=== PATIENT | male | born 1935 | race Asian ===

== ENCOUNTER 2018-08-21 10:36 | Emergency (ER) | payer MEDICARE, OTHER ==
[~2018-08-21] VITALS: Ht 172.7 cm; Wt 65.8 kg
--- NOTE | 2018-08-21 10:36 | NUR ---
DR Farris at the bedside for MSE.
[2018-08-21] MEDS ORDERED: CRAN450C PO (11:00)
[2018-08-21] MEDS ORDERED: MEMA10TA PO (11:00)
[2018-08-21] MEDS ORDERED: LINA290C PO (11:00)
[2018-08-21] MEDS ORDERED: DIGO125T PO (11:00)
[2018-08-21] MEDS ORDERED: CALC-494 PO (11:00)
[2018-08-21] MEDS ORDERED: ACET-2154 PO (11:00)
[2018-08-21] MEDS ORDERED: INSU3INS6 SQ ×2 (11:00)
[2018-08-21] MEDS ORDERED: ASPI81TA31 PO (11:00)
[2018-08-21] MEDS ORDERED: DOCU100C36 PO (11:00)
[2018-08-21] MEDS ORDERED: CARV3.122 PO (11:00)
[2018-08-21] MEDS ORDERED: DEXT15DR6 EACHEYE (11:00)
[2018-08-21] MEDS ORDERED: METF-440 PO (11:00)
[2018-08-21] MEDS ORDERED: EMPA10TA PO (11:00)
[2018-08-21] MEDS ORDERED: LEVO88TA5 PO (11:00)
[2018-08-21] MEDS ORDERED: DONE10TA11 PO (11:00)
[2018-08-21] MEDS ORDERED: TAMS-3 PO (11:00)
[2018-08-21] MEDS ORDERED: MAGN400T6 PO (11:00)
[2018-08-21] MEDS ORDERED: CHOL4PAC PO (11:00)
[2018-08-21] MEDS ORDERED: MULT-213 PO (11:00)
[2018-08-21] MEDS ORDERED: CHOL200074 PO (11:02)
[2018-08-21] MEDS ORDERED: OMEG1CAP55 PO (11:02)
[2018-08-21] MEDS ORDERED: TRAV5DRO OP (11:02)
[2018-08-21] MEDS ORDERED: LINA5TAB PO (11:02)
[2018-08-21] MEDS ORDERED: PANT20TA2 PO (11:02)
[2018-08-21] MEDS ORDERED: NITR0.4T48 SL (11:02)
--- NOTE | 2018-08-21 11:20 | NUR ---
Patient is resting comfortably in bed with eyes closed, NAD noted.
--- NOTE | 2018-08-21 11:35 | NUR ---
Called [facility] for S ambulance tx, ETA 30 min.
--- NOTE | 2018-08-21 12:32 | NUR ---
Report given to industrial services worker, from [facility]. Pt Left ER in stable condition, discharge paperwork given to EMT's. All belongings sent w/ pt.
[2018-08-21 12:34] VITALS: BP 94/62
== END 2018-08-21 12:35 | disposition home or self-care (01) ==
LOC: ER 10:39
DX: M25.551 Pain in right hip (principal); Z79.4 Long term (current) use of insulin; Z79.82 Long term (current) use of aspirin; Z79.899 Other long term (current) drug therapy; W18.30XA Fall on same level, unspecified, initial encounter; Y93.89 Activity, other specified; Y92.89 Other specified places as the place of occurrence of the external cause; Y99.8 Other external cause status
CPT/HCPCS: 72192; A4663

== ENCOUNTER 2019-10-20 14:42 | Inpatient (IN) | payer MEDICARE, OTHER ==
[~2019-10-20] VITALS: Ht 182.9 cm; Wt 66.5 kg
--- NOTE | 2019-10-20 14:49 | NUR ---
ERMD at bedside for MSE
[2019-10-20 15:12] LABS: BASOPHILS # (AUTO) 0.1 K/uL (0.0-8.0); BASOPHILS % (AUTO) 0.9 % (0.0-2.0); EOSINOPHILS # (AUTO) 0.4 K/uL (0.0-0.7); HEMATOCRIT 31.1 % (36.7-47.1); HEMOGLOBIN 10.2 g/dL (12.5-16.3); LYMPHOCYTES # (AUTO) 1.6 K/uL (20.0-40.0); LYMPHOCYTES % (AUTO) 16.6 % (20.5-51.5); MEAN CORPUSCULAR HEMOGLOBIN 27.4 uug (23.8-33.4); MEAN CORPUSCULAR HGB CONC 33 g/dL (32.5-36.3); MEAN CORPUSCULAR VOLUME 83.6 fL (73.0-96.2); MONOCYTES # (AUTO) 0.6 K/uL (2.0-10.0); MONOCYTES % (AUTO) 6.3 % (0.0-11.0); NEUTROPHILS # (AUTO) 7.1 K/uL (1.8-8.9); NEUTROPHILS % (AUTO) 72.2 % (38.5-71.5); PLATELET COUNT (AUTO) 330 K/uL (152-348); RED BLOOD CELL COUNT(AUTO) 3.72 MIL/uL (4.06-5.63); WHITE BLOOD COUNT (AUTO) 9.8 K/uL (3.6-10.2)
[2019-10-20 15:21] LABS: CREATININE 1.2 mg/dL (0.6-1.3); POTASSIUM 3.7 mmol/L (3.5-5.1)
--- NOTE | 2019-10-20 16:15 | NUR ---
Awaiting call back from [facility] nephrology aboriginal education worker coordinator
--- NOTE | 2019-10-20 16:20 | NUR ---
Gabbi returned call
--- NOTE | 2019-10-20 16:46 | NUR ---
In patient floor is not able to take patient at this time.
[2019-10-20] MEDS ORDERED: IV NORMAL SALINE 1000 ML BAG IV ONE (17:00)
--- NOTE | 2019-10-20 17:33 | NUR ---
Report given to RADHA Kong
--- NOTE | 2019-10-20 17:41 | NUR ---
Patient transported to [facility] in stable condition.
--- NOTE | 2019-10-20 17:50 | NUR ---
ADMITTED FROM [facility] VIA ER FOR PEG PLACEMENT SECONDARY TO FAILURE TO THRIVE. ALERT, CONFUSED X3. NO SIGNS OF DISTRESS. WILL ADMIT UNDER MEDSURG STATUS. WILL NOTIFY MD FOR ADMISSION ORDERS.
[2019-10-20 18:00] VITALS: BP 119/66
[2019-10-20] MEDS ORDERED: IV NORMAL SALINE 500 ML IV ONE (20:00)
[2019-10-20 20:09] VITALS: BP 84/48
--- NOTE | 2019-10-20 20:15 | NUR ---
Spoke to on-call Dr. Valadez, says he will do admitting orders and reconcile medication. Keep patient NPO for now. Patient also noted with low BP, doctor ordered 500ml NS bolus x1. Patient noted resting in bed, easily to arouse, A/Ox1. No s/s of pain or SOB. safety measures initiated. Bed is low and locked, call light within reach. Will continue to monitor.
--- NOTE | 2019-10-20 21:56 | NUR ---
Rechecked blood pressures and is now 96/54. Spoke to Dr. Valadez about admitting orders, says he is working it right now. Will continue to monitor.
[2019-10-20] MEDS ORDERED: BISACODYL 10 MG SUPP.RECT RC PRN (22:30)
[2019-10-20] MEDS ORDERED: FLEET ENEMA 133 ML BOTTLE RC PRN (22:30)
[2019-10-20] MEDS ORDERED: NITROGLYCERIN 0.4 MG/TAB BOTTLE SL PRN (22:30)
[2019-10-20] MEDS ORDERED: Z GUARD REMEDY PASTE 57 GM TUBE TOP PRN (22:45)
[2019-10-20] MEDS ORDERED: HYDROCODONE/APAP 5-325MG TABLET PO PRN (22:45)
[2019-10-20] MEDS ORDERED: ZOLPIDEM 5 MG TABLET PO PRN (22:45)
[2019-10-20] MEDS ORDERED: ONDANSETRON 4 MG/2 ML VIAL IV PRN (22:45)
[2019-10-20] MEDS ORDERED: MAGNESIUM HYDROXIDE 30 ML LIQUID UDC PO PRN (22:45)
[2019-10-20] MEDS ORDERED: DEXTROSE 50% 50 ML DISP.SYRIN IV PRN (22:45)
[2019-10-20] MEDS ORDERED: ALBUTEROL SULFATE 2.5 MG/3 ML NEBU NEB PRN (23:00)
[2019-10-21] MEDS: BLOOD SUGAR DIAGNOSTIC 1 EACH STRIP VI SCH ×4 (00:22→18:21)
[2019-10-21] MEDS: INSULIN REGULAR, HUMAN 300 UNIT/3 ML VIAL SQ PRN ×3 (00:25→18:23)
--- NOTE | 2019-10-21 05:41 | NUR ---
patient slept intermittently. No episodes of agitation or aggression noted. Turned and repositioned patient. Heplocks on the left forearm are intact and patent. Safety measures given. Will endorse to next shift.
[2019-10-21 06:14] LABS: BASOPHILS % (AUTO) 0.2 % (0.0-2.0); EOSINOPHILS # (AUTO) 0.2 K/uL (0.0-0.7); EOSINOPHILS % (AUTO) 2.8 % (0.0-7.0); HEMATOCRIT 28.5 % (36.7-47.1); HEMOGLOBIN 9.4 g/dL (12.5-16.3); LYMPHOCYTES # (AUTO) 1.5 K/uL (20.0-40.0); LYMPHOCYTES % (AUTO) 17.7 % (20.5-51.5); MEAN CORPUSCULAR HEMOGLOBIN 27.3 uug (23.8-33.4); MEAN CORPUSCULAR HGB CONC 33 g/dL (32.5-36.3); MEAN CORPUSCULAR VOLUME 83.3 fL (73.0-96.2); MONOCYTES # (AUTO) 0.6 K/uL (2.0-10.0); MONOCYTES % (AUTO) 6.9 % (0.0-11.0); NEUTROPHILS # (AUTO) 6.1 K/uL (1.8-8.9); NEUTROPHILS % (AUTO) 72.4 % (38.5-71.5); PLATELET COUNT (AUTO) 330 K/uL (152-348); RED BLOOD CELL COUNT(AUTO) 3.43 MIL/uL (4.06-5.63); WHITE BLOOD COUNT (AUTO) 8.4 K/uL (3.6-10.2)
[2019-10-21 06:20] VITALS: BP 96/50
[2019-10-21] MEDS: PANTOPRAZOLE SODIUM 40 MG TABLET.DR PO SCH (06:20)
[2019-10-21] MEDS: LEVOTHYROXINE SODIUM 88 MCG TABLET PO SCH (06:20)
[2019-10-21 06:26] LABS: CREATININE 1.3 mg/dL (0.6-1.3); MAGNESIUM 1.5 mg/dL (1.8-2.4); PHOSPHOROUS 2.2 mg/dL (2.5-4.9); POTASSIUM 3.3 mmol/L (3.5-5.1)
[2019-10-21] MEDS ORDERED: ZOLPIDEM 5 MG TABLET PO PRN (07:15)
[2019-10-21] MEDS: CARVEDILOL 6.25 MG TABLET PO SCH ×2 (08:56→18:00)
[2019-10-21] MEDS: MAGNESIUM OXIDE 400 MG TABLET PO SCH ×2 (08:57→17:55)
[2019-10-21] MEDS: SPIRONOLACTONE 25 MG TABLET PO SCH (08:57)
[2019-10-21] MEDS: LISINOPRIL 10 MG TABLET PO SCH ×2 (08:57→21:00)
[2019-10-21] MEDS: MEMANTINE HCL 10 MG TABLET PO SCH (08:57)
[2019-10-21] MEDS: CALCIUM CARBONATE 500 MG TABLET PO SCH ×2 (08:58→17:51)
[2019-10-21] MEDS ORDERED: ASPIRIN 81 MG TAB.CHEW PO SCH (09:00)
[2019-10-21 11:05] VITALS: BP 112/61
[2019-10-21] MEDS: MAGNESIUM SULFATE/D5W 100 ML IV SCH ×3 (11:27→13:39)
[2019-10-21] MEDS: POTASSIUM PHOSPHATE MM 7.5 MMOL in IV DEXTROSE 5% 100 ML IV SCH ×2 (11:58→15:07)
[2019-10-21] MEDS ORDERED: SILVER NITRATE APPLICATOR STICK EACH TP PRN (12:30)
[2019-10-21] MEDS ORDERED: OSELTAMIVIR PHOSPHATE 75 MG CAPSULE PO SCH (14:00)
[2019-10-21 15:10] VITALS: BP 100/24
--- NOTE | 2019-10-21 18:49 | NUR ---
PATIENT ALERT WITH EPISODES OF CONFUSION. NO SOB, NO S/S OF PAIN AT THIS TIME. PATIENT WILL BE NPO AFTER MIDNIGHT AND GTUBE INSERTION IS SCHEDULE FOR TOMORROW, CONSENT SIGNED.
--- NOTE | 2019-10-21 20:00 | NUR ---
Patient received into care, laying in bed sleeping, resting comfortably. Patient is alert/oriented x1 and has no signs/symptoms of acute distress or discomfort noted/observed by nurse. Safety, fall, and aspiration precautions are in place. Call light and personal items are within reach. Will continue to monitor and assess.
[2019-10-21 20:52] VITALS: BP 114/67
[2019-10-21] MEDS: TAMSULOSIN HCL 0.4 MG CAP.SR.24H PO SCH ×2 (21:00→21:19)
[2019-10-21] MEDS: MELATONIN 3 MG TABLET PO SCH ×2 (21:00→21:19)
[2019-10-21] MEDS: DONEPEZIL 10 MG TABLET PO SCH ×2 (21:00→21:19)
[2019-10-21] MEDS: QUETIAPINE FUMARATE 25 MG TABLET PO SCH ×2 (21:00→21:19)
[2019-10-21] MEDS: INSULIN GLARGINE,HUM 300 UNITS/3 ML CARTRIDGE SQ SCH (21:19)
--- NOTE | 2019-10-21 21:20 | NUR ---
PATIENT REFUSED ALL HS MEDICATIONS. NURSE EXPLAINED RISKS/BENEFITS THREE TIMES BUT PATIENT STILL REFUSED. Addendum: 10/22/19 at 0518 by RASHID COULTER RN HELD HS PRESCRIBED PRINIVIL DUE TO DECREASED BP 95/56
[2019-10-22] MEDS: BLOOD SUGAR DIAGNOSTIC 1 EACH STRIP VI SCH ×4 (00:12→17:18)
[2019-10-22] MEDS: IV D5/ 0.9% NACL 1,000 ML IV PRN ×2 (00:19→19:59)
--- NOTE | 2019-10-22 01:30 | NUR ---
LEFT AC IV CATHETER LEAKING. DOCUMENTED LEFT FOREARM (APPEARS TO BE ON LEFT WRIST) 24G IV CATH DOES NOT FLUSH AND IS REDDENED. INSERTED NEW IV CATH ON LEFT FOREARM 22G AND STARTED D5 NS @ 75mL/HR, ORDERED. OLD IV CATHETERS SUCCESSFULLY REMOVED. WILL CONTINUE TO MONITOR AND ASSESS.
[2019-10-22] MEDS: INSULIN REGULAR, HUMAN 300 UNIT/3 ML VIAL SQ PRN ×3 (05:31→17:20)
[2019-10-22 05:56] LABS: BASOPHILS % (AUTO) 0.3 % (0.0-2.0); EOSINOPHILS # (AUTO) 0.3 K/uL (0.0-0.7); EOSINOPHILS % (AUTO) 3.5 % (0.0-7.0); HEMATOCRIT 27.3 % (36.7-47.1); LYMPHOCYTES # (AUTO) 2.1 K/uL (20.0-40.0); LYMPHOCYTES % (AUTO) 21.3 % (20.5-51.5); MEAN CORPUSCULAR HEMOGLOBIN 27.3 uug (23.8-33.4); MEAN CORPUSCULAR HGB CONC 33 g/dL (32.5-36.3); MEAN CORPUSCULAR VOLUME 83.2 fL (73.0-96.2); MONOCYTES # (AUTO) 0.7 K/uL (2.0-10.0); NEUTROPHILS # (AUTO) 6.5 K/uL (1.8-8.9); NEUTROPHILS % (AUTO) 67.9 % (38.5-71.5); PLATELET COUNT (AUTO) 312 K/uL (152-348); RED BLOOD CELL COUNT(AUTO) 3.28 MIL/uL (4.06-5.63); WHITE BLOOD COUNT (AUTO) 9.7 K/uL (3.6-10.2)
[2019-10-22 05:58] LABS: CREATININE 1.1 mg/dL (0.6-1.3); MAGNESIUM 1.7 mg/dL (1.8-2.4); PHOSPHOROUS 3.3 mg/dL (2.5-4.9); POTASSIUM 3.7 mmol/L (3.5-5.1)
--- NOTE | 2019-10-22 06:00 | NUR ---
Patient slept comfortably throughout night with no signs/symptoms of acute distress or discomfort noted/observed by nurse. Patient was not compliant with his HS oral medications but did accept prescribed Lantus and insulins. All nursing needs were met promptly and patient is warm, dry, and comfortable. Patient has been NPO since 12mn in anticipation for scheduled gastrostomy tube insertion this morning. Safety, aspiration, and fall precaution measures remain in place. Personal items and call light remain within reach.
[2019-10-22] MEDS: PANTOPRAZOLE SODIUM 40 MG TABLET.DR PO SCH (06:06)
[2019-10-22] MEDS: LEVOTHYROXINE SODIUM 88 MCG TABLET PO SCH (06:06)
--- NOTE | 2019-10-22 06:49 | NUR ---
WOUND CARE CONSULT WOUND CARE RECEIVED CONSULT FOR SACRAL WOUND. WOUND CARE WILL DEFER CONSULT AND ALL TREATMENT PLANS TO SURGICAL TEAM INCLUDING DPM DR GOTTI WHO ARE ALL FOLLOWING THIS PATIENT. PATIENT WITH SOLITARIO AT 10, ALL PRESSURE ULCER PREVENTION MEASURES ARE NOTED TO BE IN PLACE. WILL SEE PRN.
[2019-10-22 06:51] VITALS: BP 105/65
--- NOTE | 2019-10-22 07:30 | NUR ---
Received Pt. in bed A/Ox1, responsive to verbal and tactile stimuli. Pt. NPO since midnight per NSG report. Schedule for G-tube insertion with Dr. Cortez. On PETRA for pressure redistribution and wound mgt. Family at bedside, telephone consent obtained by previous shift. Safety measure in place. Call light and all frequently used items within pt. reach. Will continue to monitor accordingly.
[2019-10-22] MEDS ORDERED: FENTANYL CITRATE 100 MCG/2 ML AMPUL ONE (07:39)
[2019-10-22] MEDS: CARVEDILOL 6.25 MG TABLET PO SCH ×2 (08:00→17:16)
--- NOTE | 2019-10-22 08:03 | NUR ---
Pt. left unit at 0800 for scheduled G-tube placement. Left in stable condition. Family at bedside and aware.
[2019-10-22] MEDS: MEMANTINE HCL 10 MG TABLET PO SCH (08:09)
[2019-10-22] MEDS: MAGNESIUM OXIDE 400 MG TABLET PO SCH ×2 (08:09→17:16)
[2019-10-22] MEDS: SPIRONOLACTONE 25 MG TABLET PO SCH (08:09)
[2019-10-22] MEDS: LISINOPRIL 10 MG TABLET PO SCH ×2 (08:09→20:29)
[2019-10-22] MEDS: CALCIUM CARBONATE 500 MG TABLET PO SCH ×2 (08:09→17:16)
[2019-10-22] MEDS ORDERED: PROPOFOL 200 MG/20 ML BOTTLE IV ONE (09:31)
[2019-10-22] MEDS ORDERED: IRR STERIL WATER FOR IRR 1000 ML BOTTLE IR ONE (09:31)
[2019-10-22] MEDS ORDERED: CEFAZOLIN 1 G VIAL IM ONE (09:31)
[2019-10-22] MEDS ORDERED: IV NORMAL SALINE 1000 ML BAG IV ONE (09:31)
[2019-10-22] MEDS ORDERED: LIDOCAINE-MPF 2% 5 ML VIAL IJ ONE (09:31)
--- NOTE | 2019-10-22 10:51 | NUR ---
Pt. returned to unit @ 1045 s/p PEG placement. Re-started IV fluid. Per Dr. Cortez may use PEG in 4 hours for water + meds. Feeding to start in AM. RD consult placed for feeding. Peg site dressing C/D/I. Addendum: 10/22/19 at 1535 by JARED MAGANA RN Pt. seen by BOARDING HOUSE MANAGER, sacral wound debridement performed. Pt. tolerated procedure well.
[2019-10-22 11:10] VITALS: BP 105/68
[2019-10-22] MEDS: MAGNESIUM SULFATE/D5W 100 ML IV SCH ×2 (12:17→13:25)
[2019-10-22] MEDS: THERAHONEY GEL 1.5 OZ TUBE TOP SCH (12:17)
[2019-10-22 15:10] VITALS: BP 104/62
--- NOTE | 2019-10-22 18:33 | NUR ---
EOS: All due medications given as ordered. Pt. NPO, all meds via GT. New IV started on RH 22G. Seen by RD with recommendation for Glucerna 1.2 to start in AM @ 20 ml per hour and may increase every 6 hours by 10 ml with goal of 70 ml/hr + water flushing on 140 ml every 6 hours. Kept pt. clean and dry. Safety measures in place. Call light and all frequently used items within pt. reach. Will endorse to oncoming shift accordingly.
[2019-10-22 20:14] VITALS: BP 98/59
[2019-10-22] MEDS: TAMSULOSIN HCL 0.4 MG CAP.SR.24H PO SCH (20:28)
[2019-10-22] MEDS: DONEPEZIL 10 MG TABLET PO SCH (20:28)
[2019-10-22] MEDS: QUETIAPINE FUMARATE 25 MG TABLET PO SCH (20:29)
[2019-10-22] MEDS: MELATONIN 3 MG TABLET PO SCH (20:29)
[2019-10-22] MEDS: INSULIN GLARGINE,HUM 300 UNITS/3 ML CARTRIDGE SQ SCH (21:08)
[2019-10-23] MEDS: BLOOD SUGAR DIAGNOSTIC 1 EACH STRIP VI SCH ×4 (00:12→17:47)
[2019-10-23] MEDS: INSULIN REGULAR, HUMAN 300 UNIT/3 ML VIAL SQ PRN ×2 (00:13→14:35)
[2019-10-23 06:19] VITALS: BP 96/55
[2019-10-23] MEDS: GLUCERNA 1.2 1000ML LIQUID GT PRN (06:23)
[2019-10-23] MEDS: LEVOTHYROXINE SODIUM 88 MCG TABLET PO SCH (06:33)
[2019-10-23 07:25] LABS: CREATININE 1.2 mg/dL (0.6-1.3); MAGNESIUM 2.1 mg/dL (1.8-2.4); POTASSIUM 3.1 mmol/L (3.5-5.1)
[2019-10-23] MEDS: CARVEDILOL 6.25 MG TABLET PO SCH ×2 (08:57→17:51)
[2019-10-23] MEDS: PANTOPRAZOLE ORAL SUSPENSION 40 MG SUSPDR.PKT GT SCH (08:57)
[2019-10-23] MEDS: SPIRONOLACTONE 25 MG TABLET PO SCH (08:57)
[2019-10-23] MEDS: MAGNESIUM OXIDE 400 MG TABLET PO SCH ×2 (08:57→16:31)
[2019-10-23] MEDS: MEMANTINE HCL 10 MG TABLET PO SCH (08:57)
[2019-10-23] MEDS: CALCIUM CARBONATE 500 MG TABLET PO SCH ×2 (08:57→16:31)
[2019-10-23] MEDS: LISINOPRIL 10 MG TABLET PO SCH ×2 (08:58→20:50)
[2019-10-23] MEDS: THERAHONEY GEL 1.5 OZ TUBE TOP SCH (08:58)
[2019-10-23] MEDS ORDERED: POTASSIUM CHLORIDE 10 MEQ TAB.PRT.SR PO ONE (10:00)
[2019-10-23 11:10] VITALS: BP 91/51
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
[2019-10-23] MEDS: ARGININE/GLUTAMINE/CALCIUM BMB 1 EACH POWD.PACK GT SCH ×2 (14:31→16:31)
[2019-10-23] MEDS: IV D5/ 0.9% NACL 1,000 ML IV PRN (14:48)
[2019-10-23 15:30] VITALS: BP 102/59
--- NOTE | 2019-10-23 15:30 | NUR ---
Pt tolerating TF well (Glucerna 1.2). TF now infusing at 40 ml/h. No residual noted. 140 ml free water administered at this time (every 6 hours) per MD orders. No distress noted or reported. Pt denied any pain or discomfort. Pt noted to have pulled out PIV partially, and leaking, and infiltrated. Notified RADHA Stewart for continuity of care. SBAR report given to RADHA Leung, for continuity of care. Pt turned every 2 hours. Pt safety maintained during shift.
--- NOTE | 2019-10-23 15:50 | NUR ---
Dressing change to left foot/heel rendered per wound care orders. Pt safety maintained during shift.
--- NOTE | 2019-10-23 16:00 | NUR ---
Received report from PREET GARCIA.
--- NOTE | 2019-10-23 18:29 | NUR ---
Patient is awake and verbally responsive. No signs of distress noted. No SOB. No signs of Pain or discomfort. GTube feeding tolerated well. Abdomen soft and non distended. Kept clean and comfortable. will endorse to Oncoming Nurse.
--- NOTE | 2019-10-23 20:00 | NUR ---
RECEIVED PATIENT ASLEEP IN BED. EASILY AROUSABLE. ALERT TO SELF, BUT FOLLOWS DIRECTIONS WELL. GT FEEDING AT 40cc/hr. PATIENT TOLERATING WELL. HOB ELEVATED. ABDOMINAL BINDER IN PLACE. VSS. IVF INFUSING WELL TO RIGHT FA. ON AIR MATTRESS. WHEN ASKED IF PAIN IS PRESENT, PATIENT DENIES. NO S/S OF ANY PAIN OR DISCOMFORT. BED ALARM ON. CALL LIGHT IN REACH. ALL NEEDS ATTENDED. WILL CONTINUE TO MONITOR AND ASSESS.
[2019-10-23] MEDS: DONEPEZIL 10 MG TABLET PO SCH (20:49)
[2019-10-23] MEDS: MELATONIN 3 MG TABLET PO SCH (20:49)
[2019-10-23] MEDS: QUETIAPINE FUMARATE 25 MG TABLET PO SCH (20:49)
[2019-10-23] MEDS: ACETAMINOPHEN 325 MG TABLET PO PRN (20:49)
[2019-10-23] MEDS: TAMSULOSIN HCL 0.4 MG CAP.SR.24H PO SCH (20:49)
[2019-10-23] MEDS: INSULIN GLARGINE,HUM 300 UNITS/3 ML CARTRIDGE SQ SCH (20:50)
[2019-10-23 20:54] VITALS: BP 111/63
[2019-10-24] MEDS: BLOOD SUGAR DIAGNOSTIC 1 EACH STRIP VI SCH ×4 (00:04→17:43)
[2019-10-24] MEDS: INSULIN REGULAR, HUMAN 300 UNIT/3 ML VIAL SQ PRN ×4 (00:05→17:46)
[2019-10-24 05:46] VITALS: BP 94/53
--- NOTE | 2019-10-24 06:08 | NUR ---
PATIENT ASLEEP IN BED. EASILY AROUSABLE. GT FEEDING AT 50cc/hr. TOLERATING FEEDING WELL, ALMOST REACHED GOAL. NO RESIDUAL NOTED. VSS. IVF INFUSING WELL. DRESSING C/D/I. ALL NEEDS ATTENDED, WILL CONTINUE TO MONITOR AND ASSESS.
[2019-10-24] MEDS: LEVOTHYROXINE SODIUM 88 MCG TABLET PO SCH (06:15)
[2019-10-24] MEDS: CARVEDILOL 6.25 MG TABLET PO SCH ×2 (07:45→17:56)
--- NOTE | 2019-10-24 07:45 | NUR ---
Received patient in Bed, awake and responsive. No signs of distress noted. No SOB. No complain of Pain or discomfort. GTube intact and patent, Gtube feeding tolerated well. Abdomen soft and non distended. kept comfortable. Will continue to monitor.
[2019-10-24] MEDS: LISINOPRIL 10 MG TABLET PO SCH ×2 (08:17→20:32)
[2019-10-24] MEDS: CALCIUM CARBONATE 500 MG TABLET PO SCH ×2 (08:18→16:46)
[2019-10-24] MEDS: MEMANTINE HCL 10 MG TABLET PO SCH (08:18)
[2019-10-24] MEDS: ASPIRIN 81 MG TAB.CHEW GT SCH (08:18)
[2019-10-24] MEDS: PANTOPRAZOLE ORAL SUSPENSION 40 MG SUSPDR.PKT GT SCH (08:18)
[2019-10-24] MEDS: SPIRONOLACTONE 25 MG TABLET PO SCH (08:18)
[2019-10-24] MEDS: MAGNESIUM OXIDE 400 MG TABLET PO SCH ×2 (08:18→16:46)
[2019-10-24] MEDS: ARGININE/GLUTAMINE/CALCIUM BMB 1 EACH POWD.PACK GT SCH ×2 (08:18→16:47)
[2019-10-24] MEDS: THERAHONEY GEL 1.5 OZ TUBE TOP SCH (09:20)
[2019-10-24] MEDS: IV D5/ 0.9% NACL 1,000 ML IV PRN (10:48)
[2019-10-24 11:08] VITALS: BP 113/61
[2019-10-24 15:16] VITALS: BP 128/62
--- NOTE | 2019-10-24 17:25 | NUR ---
Tolerating TF thus, will increase to goal rate today. Glucose fair control. Weight stable. Will continue to monitor. Addendum: 10/24/19 at 1747 by LORI GALINDO, VIANE[address] RD Amended: Links added.
--- NOTE | 2019-10-24 18:20 | NUR ---
Patient in bed, awake and verbally responsive. No signs of distress noted. No SOB. No complain of Pain or discomfort. Afebrile. Gtube intact and patent, Abdomen soft and non distended. On Glucerna 70cc/hr x 22 hours. Gtube feeding tolerated well, No nausea/vomiting. Kept clean and comfortable. Will endorse to Oncoming Nurse.
--- NOTE | 2019-10-24 19:30 | NUR ---
RECEIVED PT AWAKE, ALERT AND ORIENTEDX1. PT IN NO ACUTE DISTRESS. IV INTACT. G-TUBE INTACT. SAFETYAND COMFORT PROVIDED. WILL CONTINUE TO MONITOR.
[2019-10-24] MEDS: DONEPEZIL 10 MG TABLET PO SCH (20:29)
[2019-10-24] MEDS: MELATONIN 3 MG TABLET PO SCH (20:29)
[2019-10-24] MEDS: QUETIAPINE FUMARATE 25 MG TABLET PO SCH (20:30)
[2019-10-24] MEDS: TAMSULOSIN HCL 0.4 MG CAP.SR.24H PO SCH (20:30)
[2019-10-24] MEDS: ACETAMINOPHEN 325 MG TABLET PO PRN (20:31)
[2019-10-24] MEDS: INSULIN GLARGINE,HUM 300 UNITS/3 ML CARTRIDGE SQ SCH (20:37)
[2019-10-24 20:47] VITALS: BP 96/56
[2019-10-24 21:28] VITALS: BP 110/63
--- NOTE | 2019-10-24 21:52 | NUR ---
GIVEN TYLENOL FOR 100.6 TEMP. COOLING MEASURES DONE. RECENT TEMP IS 98.6. PT IN NO ACUTE DISTRESS. WILL CONTINUE TO MONITOR.
[2019-10-24] MEDS: GLUCERNA 1.2 1000ML LIQUID GT PRN (22:21)
[2019-10-25] MEDS: BLOOD SUGAR DIAGNOSTIC 1 EACH STRIP VI SCH ×4 (00:15→18:50)
[2019-10-25] MEDS: INSULIN REGULAR, HUMAN 300 UNIT/3 ML VIAL SQ PRN ×4 (00:17→18:54)
--- NOTE | 2019-10-25 05:30 | NUR ---
PT COMBATIVE WHEN CHANGING DIAPERS TO THE PT. SAFETY PROVIDED. WILL CONTINUE TO MONITOR.
[2019-10-25] MEDS: LEVOTHYROXINE SODIUM 88 MCG TABLET PO SCH (06:05)
[2019-10-25 06:10] LABS: BASOPHILS % (AUTO) 0.2 % (0.0-2.0); EOSINOPHILS # (AUTO) 0.2 K/uL (0.0-0.7); EOSINOPHILS % (AUTO) 1.6 % (0.0-7.0); HEMATOCRIT 27.3 % (36.7-47.1); LYMPHOCYTES # (AUTO) 1.9 K/uL (20.0-40.0); LYMPHOCYTES % (AUTO) 14.8 % (20.5-51.5); MEAN CORPUSCULAR HEMOGLOBIN 27.2 uug (23.8-33.4); MEAN CORPUSCULAR HGB CONC 33 g/dL (32.5-36.3); MONOCYTES # (AUTO) 0.8 K/uL (2.0-10.0); MONOCYTES % (AUTO) 6.4 % (0.0-11.0); NEUTROPHILS # (AUTO) 9.8 K/uL (1.8-8.9); PLATELET COUNT (AUTO) 356 K/uL (152-348); RED BLOOD CELL COUNT(AUTO) 3.29 MIL/uL (4.06-5.63); WHITE BLOOD COUNT (AUTO) 12.8 K/uL (3.6-10.2)
--- NOTE | 2019-10-25 06:14 | NUR ---
PT SLEPT COMFORTABLY. PT IN NO ACUTE DISTRESS. IV INTACT. GTUBE INTACT.PRESCRIBED MEDICATION GIVEN AND PT TOLERATED IT WELL. WOUND DRESSING CHANGED. PT TURNED AND REPOSITIONED. ALL NEEDS ARE MET.SAFETY AND COMFORT PROVIDED. WILL ENDORSE TO INCOMING NURSE FOR CONTINUITY OF CARE.
[2019-10-25 06:31] LABS: CREATININE 1.2 mg/dL (0.6-1.3); PHOSPHOROUS 2.3 mg/dL (2.5-4.9); POTASSIUM 4.2 mmol/L (3.5-5.1)
[2019-10-25 06:47] VITALS: BP 102/65
--- NOTE | 2019-10-25 07:00 | NUR ---
PATIENT AOX2,PT IN NO ACUTE DISTRESS. IV INTACT. GTUBE INTACT NO RESIDUAL. WOUND DRESSING CHANGED. PT WILL BE TURNED AND REPOSITIONED Q 2 H. WILL CONTINUITY OF CARE AND SAFETY .
[2019-10-25] MEDS: CARVEDILOL 6.25 MG TABLET PO SCH ×2 (08:00→18:00)
[2019-10-25] MEDS: SPIRONOLACTONE 25 MG TABLET PO SCH (08:33)
[2019-10-25] MEDS: ASPIRIN 81 MG TAB.CHEW GT SCH (08:33)
[2019-10-25] MEDS: CALCIUM CARBONATE 500 MG TABLET PO SCH ×2 (08:34→18:51)
[2019-10-25] MEDS: LISINOPRIL 10 MG TABLET PO SCH (08:34)
[2019-10-25] MEDS: MAGNESIUM OXIDE 400 MG TABLET PO SCH ×2 (08:34→18:51)
[2019-10-25] MEDS: MEMANTINE HCL 10 MG TABLET PO SCH (08:34)
[2019-10-25] MEDS: PANTOPRAZOLE ORAL SUSPENSION 40 MG SUSPDR.PKT GT SCH (08:34)
[2019-10-25] MEDS: THERAHONEY GEL 1.5 OZ TUBE TOP SCH (08:40)
[2019-10-25] MEDS: ARGININE/GLUTAMINE/CALCIUM BMB 1 EACH POWD.PACK GT SCH ×2 (08:40→18:52)
[2019-10-25 11:19] VITALS: BP 98/59
[2019-10-25 15:02] VITALS: BP 121/23
[2019-10-25] MEDS ORDERED: NEUTRA PHOS PACKET GT ONE (15:30)
[2019-10-25 16:39] LABS: *BILIRUBIN,URIN NEGATIVE (NEGATIVE); *COLOR,URINE YELLOW (YELLOW); *KETONES,URINE NEGATIVE (NEGATIVE); *UROBILINOGEN,URINE 0.2 E.U./dl (NORMAL); LEUKOCYTE ESTERASE ,URINE 1+ (NEGATIVE); NITRITE, URINE NEGATIVE (NEGATIVE); UGLUCOSE NEGATIVE (NEGATIVE)
[2019-10-25 17:50] LABS: *BLOOD, URINE TRACE (NEGATIVE); *CLARITY,URINE SLIGHTLY HAZY (CLEAR)
[2019-10-25 17:53] LABS: MUCUS,URINE MODERATE /LPF (0-FEW)
--- NOTE | 2019-10-25 19:01 | NUR ---
PATIENT AOX2,PT IN NO ACUTE DISTRESS. IV INTACT. GTUBE INTACT NO RESIDUAL. WOUND DRESSING CHANGED. PT TURNED AND REPOSITIONED Q 2 H. SAFETY MAINTAINED .
--- NOTE | 2019-10-25 19:15 | NUR ---
Patient is awake, alert and verbally responsive. Oriented to name, responds to simple questions but unable to continue a full conversation. Coughing noted. Adventitious breath sounds heard on expiration, more on the upper lobes. But no signs of active distress. GT feeding on going as ordered, pt tolerating well. Kept patient on semi sher's position. Aspiration precautions maintained. Family is at bedside, and asked for updates on patient. Informed them of AM nurse report and reassured that we will take care of patient. All questions answered. Will continue to monitor.
[2019-10-25 20:00] VITALS: BP 114/59
[2019-10-25] MEDS: TAMSULOSIN HCL 0.4 MG CAP.SR.24H PO SCH (21:23)
[2019-10-25] MEDS: DONEPEZIL 10 MG TABLET PO SCH (21:23)
[2019-10-25] MEDS: QUETIAPINE FUMARATE 25 MG TABLET PO SCH (21:23)
[2019-10-25] MEDS: MELATONIN 3 MG TABLET PO SCH (21:23)
[2019-10-25] MEDS: INSULIN GLARGINE,HUM 300 UNITS/3 ML CARTRIDGE SQ SCH (21:30)
[2019-10-26] MEDS: BLOOD SUGAR DIAGNOSTIC 1 EACH STRIP VI SCH ×3 (01:43→12:52)
[2019-10-26] MEDS: INSULIN REGULAR, HUMAN 300 UNIT/3 ML VIAL SQ PRN ×2 (01:45→12:53)
[2019-10-26 05:00] VITALS: BP 91/55
[2019-10-26] MEDS: LEVOTHYROXINE SODIUM 88 MCG TABLET PO SCH (06:03)
[2019-10-26 06:51] LABS: EOSINOPHILS # (AUTO) 0.3 K/uL (0.0-0.7); MEAN CORPUSCULAR HEMOGLOBIN 27.2 uug (23.8-33.4); MEAN CORPUSCULAR HGB CONC 33 g/dL (32.5-36.3); MONOCYTES # (AUTO) 0.9 K/uL (2.0-10.0)
[2019-10-26 07:01] LABS: BASOPHILS % (AUTO) 0.3 % (0.0-2.0); HEMATOCRIT 29.6 % (36.7-47.1); HEMOGLOBIN 9.7 g/dL (12.5-16.3); LYMPHOCYTES # (AUTO) 3.3 K/uL (20.0-40.0); LYMPHOCYTES % (AUTO) 19.6 % (20.5-51.5); MONOCYTES % (AUTO) 5.2 % (0.0-11.0); NEUTROPHILS # (AUTO) 12.2 K/uL (1.8-8.9); NEUTROPHILS % (AUTO) 72.9 % (38.5-71.5); PLATELET COUNT (AUTO) 411 K/uL (152-348); RED BLOOD CELL COUNT(AUTO) 3.56 MIL/uL (4.06-5.63)
[2019-10-26 07:03] LABS: WHITE BLOOD COUNT (AUTO) 16.7 K/uL (3.6-10.2)
[2019-10-26 07:18] LABS: MAGNESIUM 1.9 mg/dL (1.8-2.4); PHOSPHOROUS 2.4 mg/dL (2.5-4.9); POTASSIUM 4.5 mmol/L (3.5-5.1)
--- NOTE | 2019-10-26 07:30 | NUR ---
Awake, confused. On moderate high back rest. Room air, with intermittent coughing. Glucerna 1.2 at 70 ml/hr per G tube. Bed alarm on
[2019-10-26] MEDS: CARVEDILOL 6.25 MG TABLET PO SCH (08:00)
[2019-10-26] MEDS: ARGININE/GLUTAMINE/CALCIUM BMB 1 EACH POWD.PACK GT SCH (09:00)
[2019-10-26] MEDS: ASPIRIN 81 MG TAB.CHEW GT SCH (09:36)
[2019-10-26] MEDS: MEMANTINE HCL 10 MG TABLET PO SCH (09:36)
[2019-10-26] MEDS: MAGNESIUM OXIDE 400 MG TABLET PO SCH (09:36)
[2019-10-26] MEDS: SPIRONOLACTONE 25 MG TABLET PO SCH (09:36)
[2019-10-26] MEDS: PANTOPRAZOLE ORAL SUSPENSION 40 MG SUSPDR.PKT GT SCH (09:36)
[2019-10-26] MEDS: CALCIUM CARBONATE 500 MG TABLET PO SCH (09:36)
[2019-10-26] MEDS: THERAHONEY GEL 1.5 OZ TUBE TOP SCH (09:42)
[2019-10-26] MEDS ORDERED: CEFTRIAXONE 1 G in IV DEXTROSE 5% 50 ML IV SCH (10:00)
[2019-10-26 11:38] VITALS: BP 102/60
--- NOTE | 2019-10-26 14:00 | NUR ---
Wound care done to sacral, left heel, right hand. photos taken. With discharge order to SNF, facilitated with [facility]. Report given to Oneyda. Prepared for discharge
[2019-10-26 15:38] VITALS: BP 107/32
--- NOTE | 2019-10-26 16:00 | NUR ---
Discharged per gurney/ambulance in fair condition, not in distress, afebrile. Saline to LFA intact and patent. G tube intact.
== END 2019-10-26 16:00 | DRG 356 ==
LOC: ER 14:42 → MEDSURG3 16:55
PROVIDERS: ADMIT Internal Medicine; ATTEND Internal Medicine Nephrology
PROC: 0DH63UZ Insertion of Feeding Device into Stomach, Percutaneous Approach (ICD-10-PCS; principal; 2019-10-22)
PROC: 0JB70ZZ Excision of Back Subcutaneous Tissue and Fascia, Open Approach (ICD-10-PCS; 2019-10-22)
DX: R13.10 Dysphagia, unspecified (principal); L89.153 Pressure ulcer of sacral region, stage 3; G92 Toxic encephalopathy; L97.328 Non-pressure chronic ulcer of left ankle with other specified severity; R62.7 Adult failure to thrive; K21.9 Gastro-esophageal reflux disease without esophagitis; I48.0 Paroxysmal atrial fibrillation; I25.10 Atherosclerotic heart disease of native coronary artery without angina pectoris; E11.622 Type 2 diabetes mellitus with other skin ulcer; E11.42 Type 2 diabetes mellitus with diabetic polyneuropathy; E11.51 Type 2 diabetes mellitus with diabetic peripheral angiopathy without gangrene; R60.0 Localized edema; R82.81 Pyuria; D64.9 Anemia, unspecified; Z95.1 Presence of aortocoronary bypass graft; Z79.4 Long term (current) use of insulin; Z95.810 Presence of automatic (implantable) cardiac defibrillator; F03.90 Unspecified dementia, unspecified severity, without behavioral disturbance, psychotic disturbance, mood disturbance, and anxiety; S90.512A Abrasion, left ankle, initial encounter; X58.XXXA Exposure to other specified factors, initial encounter; Y92.099 Unspecified place in other non-institutional residence as the place of occurrence of the external cause; Z82.49 Family history of ischemic heart disease and other diseases of the circulatory system; I67.9 Cerebrovascular disease, unspecified; Z79.890 Hormone replacement therapy; Z79.899 Other long term (current) drug therapy
CPT/HCPCS: 36415; 71045; 73610; 83735; 84100; 85025; 85730; 87040; 87086; 93005; A4217; A4663; C1758; G0378; J0690; J0696; J1815; J3010; J3475; J3490; J7030; J7042; J7050; J7060

== ENCOUNTER 2019-11-26 11:00 | Inpatient (IN) | payer MEDICARE, OTHER ==
[2019-11-26] VITALS (27 sets, daily range): BP systolic 75–125; BP diastolic 44–83
[~2019-11-26] VITALS: Ht 182.9 cm; Wt 64.9 kg
--- NOTE | 2019-11-26 10:20 | NUR ---
RECHECK PATIENT BLOOD SUGAR 417. OBTAINED ORDER FOR 10 UNITS REGULAR INSULIN PER DR GUERRA. Addendum: 11/27/19 at 0113 by MAURIEC PRADO RN CORRECTION TIME OF EVENT IS 2219.
[2019-11-26] MEDS ORDERED: PIPERACILLIN SODIUM/TAZOBACTAM 3.375 G in IV DEXTROSE 5% 50 ML IV ONE (12:00)
[2019-11-26] MEDS ORDERED: IV NORMAL SALINE 1000 ML BAG IV ONE ×2 (12:00→15:00)
[2019-11-26] MEDS ORDERED: PIPERACILLIN/TAZOBACTAM/D5W 50 ML IV ONE (12:17)
[2019-11-26 12:18] LABS: BASOPHILS % (AUTO) 0.1 % (0.0-2.0); EOSINOPHILS # (AUTO) 0.1 K/uL (0.0-0.7); EOSINOPHILS % (AUTO) 0.3 % (0.0-7.0); HEMATOCRIT 25.4 % (36.7-47.1); LYMPHOCYTES # (AUTO) 1.2 K/uL (20.0-40.0); LYMPHOCYTES % (AUTO) 5.3 % (20.5-51.5); MEAN CORPUSCULAR HEMOGLOBIN 24.7 uug (23.8-33.4); MEAN CORPUSCULAR HGB CONC 31 g/dL (32.5-36.3); MONOCYTES # (AUTO) 0.7 K/uL (2.0-10.0); NEUTROPHILS # (AUTO) 20.4 K/uL (1.8-8.9); NEUTROPHILS % (AUTO) 91.3 % (38.5-71.5); PLATELET COUNT (AUTO) 442 K/uL (152-348); RED BLOOD CELL COUNT(AUTO) 3.22 MIL/uL (4.06-5.63); WHITE BLOOD COUNT (AUTO) 22.4 K/uL (3.6-10.2)
--- NOTE | 2019-11-26 12:20 | NUR ---
EKG done as ordered.
--- NOTE | 2019-11-26 12:28 | NUR ---
Relayed results of EKG to MD, with no new orders at this time. Pt monitored.
[2019-11-26 12:34] LABS: CARBON DIOXIDE 28 mmol/L (21-32); CHLORIDE 108 mmol/L (98-107); CREATININE 1.7 mg/dL (0.6-1.3); POTASSIUM 4.2 mmol/L (3.5-5.1); UREA NITROGEN, BLOOD 74 mg/dL (7-18)
[2019-11-26 12:36] LABS: GLUCOSE 344 mg/dL (74-106)
[2019-11-26 12:38] LABS: MAGNESIUM 2.5 mg/dL (1.8-2.4)
--- NOTE | 2019-11-26 12:45 | NUR ---
After kirsten-anal care done, rectal temperature was taken & rectal exam by MD, patient's heart rate is now elevated, MD is aware
[2019-11-26 12:48] LABS: THYROID STIMULATING HORMONE 3.4 mIU/mL (0.358-3.740)
[2019-11-26 12:51] LABS: ALANINE AMINOTRANSFERASE 29 U/L (16-63); ALKALINE PHOSPHATASE 311 U/L (50-136); ASPARTATE AMINOTRANSFERASE 20 U/L (15-37); BILIRUBIN,DIRECT 0.3 mg/dL (0.0-0.2); BILIRUBIN,TOTAL 0.7 mg/dL (0.2-1.0)
[2019-11-26] MEDS ORDERED: HEPARIN/D5W DRIP 500 ML IV PRN (13:15)
[2019-11-26] MEDS: VANCOMYCIN IV 1,250 MG in IV DEXTROSE 5% 250 ML IV ONE (13:19)
[2019-11-26 13:26] LABS: *BILIRUBIN,URIN NEGATIVE (NEGATIVE); *CLARITY,URINE CLEAR (CLEAR); *COLOR,URINE YELLOW (YELLOW); *KETONES,URINE NEGATIVE (NEGATIVE); LEUKOCYTE ESTERASE ,URINE 1+ (NEGATIVE); NITRITE, URINE NEGATIVE (NEGATIVE); UGLUCOSE TRACE (NEGATIVE)
[2019-11-26 13:28] LABS: *BLOOD, URINE TRACE (NEGATIVE)
[2019-11-26] MEDS ORDERED: HEPARIN/D5W DRIP 500 ML ONE (13:31)
[2019-11-26 13:36] LABS: BACTERIA,URINE MANY /HPF (NONE SEEN); SQUAMOUS EPITHELIAL CELL,UR FEW /HPF (NONE SEEN); WBC,URINE 80-100 /HPF (0-3)
[2019-11-26 13:37] LABS: MUCUS,URINE MODERATE /LPF (0-FEW); URINE AMORPHOUS PHOSPHATES MODERATE /HPF
--- NOTE | 2019-11-26 13:39 | NUR ---
Extremely difficult to get 2nd EKG 2/2 pt is agitated, screaming loudly, MD is aware.
--- NOTE | 2019-11-26 13:39 | NUR ---
Second EKG done, and relayed to .
--- NOTE | 2019-11-26 13:43 | NUR ---
IV Heparin & IV Vancomycin are not compatible (indeterminate), another PIV line needed, is aware. Endorsed to RADHA Chambers accordingly.
[2019-11-26] MEDS ORDERED: HEPARIN SODIUM,PORCINE 5,000 UNITS/ML VIAL ONE ×2 (13:54)
--- NOTE | 2019-11-26 14:00 | NUR ---
New IV line inserted on R wrist 22G, Heparin bolus of 5600 units given as ordered, and started patient on heparin drip started on 1300units/hr (26mL/hr). No signs of bleeding at this time. Monitored.
[2019-11-26] MEDS ORDERED: NOREPINEPHRINE BITARTRATE 8 MG in IV NORMAL SALINE 242 ML IV PRN (14:45)
[2019-11-26] MEDS ORDERED: LORAZEPAM 2 MG/1 ML VIAL IV ONE (14:45)
[2019-11-26] MEDS ORDERED: IV NS 1000 ML 1,000 ML IV ONE (14:45)
[2019-11-26] MEDS ORDERED: AMIODARONE HCL IV 450 MG in IV DEXTROSE 5% 250 ML IV PRN (14:45)
[2019-11-26] MEDS ORDERED: LORAZEPAM 2 MG/1 ML VIAL ONE (15:18)
--- NOTE | 2019-11-26 15:24 | NUR ---
still for CVC line insertion by Dr Davidson 2/ septic shock
--- NOTE | 2019-11-26 17:00 | NUR ---
Current Levophed drip@1mcg/kg/min thru right subclavian CVC line.
--- NOTE | 2019-11-26 17:02 | NUR ---
Patient transferred to CCU in critical condition.
[2019-11-26] MEDS ORDERED: BISACODYL 10 MG SUPP.RECT RC PRN (17:45)
--- NOTE | 2019-11-26 17:45 | NUR ---
PATIENT ADMITTED FROM ER. REPORT RECEIVED FROM OTF GARCIA. PATIENT CAME IN FOR SEPSIS OF WOUNDS. POST LINE PLACEMENT CXR DONE FOR CONFIRMATION OF LINE PLACED. ER TOTAL 3.2 L GIVEN PER SEPSIS PROTOCOL AND INFUSING NS @120ML/HR. FLU A AND B NEGATIVE. PATIENT MAXED ON LEVOPHED ON 1MCG/KG/MIN. ON HEPARIN DRIP 5600 UNITS BOLUS GIVEN AND STARTED WITH 1300UNITS/HR NEXT PTT DUE AT 2000. VANCO 1250MG IV GIVEN, ZOSYN 3.[address] LEONARD[address]
[2019-11-26] MEDS ORDERED: MORPHINE SULFATE 2 MG/1 ML DISP.SYRIN IV PRN (18:00)
[2019-11-26] MEDS ORDERED: ACETAMINOPHEN 325 MG TABLET GT PRN (18:00)
--- NOTE | 2019-11-26 18:00 | NUR ---
DOCTOR CHARLIE TAKING OVER AND WILL BE THE ADMITTING DOCTOR. VIEWED PATIENT'S XRAY FROM FACILITY CLEARED AND XRAY UPON ADMISSION SHOWED POSSIBLE PULMONARY EDEMA OR INFECTION. PATIENT DIAGNOSIS ADDED R/O COVID19. COVID SWAB DONE AND GIVEN TO LAB STAT LABS DRAWN AND ABG DONE PER RT. PATIENT PLACED ON ISOLATION. PATIENT IS A FEBRILE AT THIS TIME.
--- NOTE | 2019-11-26 18:22 | NUR ---
CLINICAL PHARMACY NOTE:VANCOMYCIN DOSING Request for vancomycin dosing on 84 y/o male 182.88cm 71.2kg for possible sepsis Temp. 99.8F WBC 22.4 BUN 74 Scr 1.7 also on Zosyn and Zithromax. Patient received vancomycin 1250Gm in ER. Continue vancomycin 1gm ivpb q24h estimated trough 18. Will order trough level prior to 4th dose. Will continue to monitor
[2019-11-26 18:27] LABS: ABG BASE EXCESS -10.6 mmol/L; ABG HCO3 13.1 mmol/L; ABG PCO2 22.2 mmHg (35.0-45.0); ABG PO2 102.3 mmHg (75.0-100.0); ABG SITE RIGHT RADIAL; ABG TOTAL HEMOGLOBIN 7.5 G/dL (13.5-18.0); COHb 0.9 % (0.5-1.5); MetHb 0.5 % (0.0-1.5); O2Hb 96.6 % (94.0-97.0); VENT MODE Nasal Cannula
[2019-11-26 18:31] LABS: BASOPHILS % (AUTO) 0.1 % (0.0-2.0); EOSINOPHILS # (AUTO) 0.1 K/uL (0.0-0.7); LYMPHOCYTES # (AUTO) 0.6 K/uL (20.0-40.0); LYMPHOCYTES % (AUTO) 1.7 % (20.5-51.5); NEUTROPHILS # (AUTO) 34.8 K/uL (1.8-8.9)
[2019-11-26 18:33] LABS: EOSINOPHILS % (AUTO) 0.4 % (0.0-7.0); MEAN CORPUSCULAR HEMOGLOBIN 25.2 uug (23.8-33.4); MEAN CORPUSCULAR HGB CONC 31 g/dL (32.5-36.3); MEAN CORPUSCULAR VOLUME 80.6 fL (73.0-96.2); MONOCYTES # (AUTO) 1.5 K/uL (2.0-10.0); MONOCYTES % (AUTO) 4.1 % (0.0-11.0); NEUTROPHILS % (AUTO) 93.7 % (38.5-71.5); PLATELET COUNT (AUTO) 394 K/uL (152-348); RED BLOOD CELL COUNT(AUTO) 2.72 MIL/uL (4.06-5.63)
[2019-11-26 18:39] LABS: WHITE BLOOD COUNT (AUTO) 37.1 K/uL (3.6-10.2)
[2019-11-26 18:40] LABS: HEMOGLOBIN 6.9 g/dL (12.5-16.3)
[2019-11-26 18:51] LABS: ALANINE AMINOTRANSFERASE 30 U/L (16-63); ALKALINE PHOSPHATASE 307 U/L (50-136); ASPARTATE AMINOTRANSFERASE 51 U/L (15-37); BILIRUBIN,TOTAL 0.9 mg/dL (0.2-1.0); CARBON DIOXIDE 18 mmol/L (21-32); CHLORIDE 109 mmol/L (98-107); CREATININE 1.8 mg/dL (0.6-1.3); FERRITIN 630 ng/mL (26-388); POTASSIUM 4.2 mmol/L (3.5-5.1); TOTAL PROTEIN, SERUM 6.1 g/dL (6.4-8.2); UREA NITROGEN, BLOOD 66 mg/dL (7-18)
[2019-11-26 18:52] LABS: GLUCOSE 453 mg/dL (74-106)
[2019-11-26 18:59] LABS: BAND % (MANUAL) 33 % (0-10); LYMPHOCYTES % (MANUAL) 1 % (20-40); MONOCYTES % (MANUAL) 5 % (2-10); NEUTROPHILS % (MANUAL) 61 % (42-75)
--- NOTE | 2019-11-26 19:00 | NUR ---
REPORTED ALL CRITICAL LAB RESULTS TO DOCTOR GUERRA. PLEASE REFER TO ORDER HISTORY FOR NEW ORDERS
[2019-11-26] MEDS ORDERED: BUMETANIDE 1 MG/4 ML VIAL IV ONE (19:15)
[2019-11-26] MEDS ORDERED: IV D5/ 0.9% NACL 1,000 ML IV PRN (19:15)
[2019-11-26] MEDS: NOREPINEPHRINE BITARTRATE 32 MG in IV NORMAL SALINE 218 ML IV PRN (19:40)
[2019-11-26] MEDS: PIPERACILLIN/TAZO 2.25 G in IV DEXTROSE 5% 50 ML IV SCH ×2 (19:40→23:51)
[2019-11-26] MEDS: HEPARIN/D5W DRIP 500 ML IV PRN (19:50)
[2019-11-26] MEDS: HYDROXYCHLOROQUINE SULFATE 200 MG TABLET GT SCH (19:50)
[2019-11-26] MEDS ORDERED: AZITHROMYCIN IV 500 MG in IV DEXTROSE 5% 250 ML IV SCH (20:00)
[2019-11-26] MEDS ORDERED: DEXTROSE 50% 50 ML DISP.SYRIN IV PRN (20:00)
[2019-11-26] MEDS ORDERED: FUROSEMIDE 20 MG/2 ML VIAL IV PRN (20:00)
[2019-11-26] MEDS: TAMSULOSIN HCL 0.4 MG CAP.SR.24H XX SCH (20:15)
[2019-11-26] MEDS: MELATONIN 3 MG TABLET GT SCH (20:15)
[2019-11-26] MEDS: BLOOD SUGAR DIAGNOSTIC 1 EACH STRIP VI SCH (20:32)
[2019-11-26 20:36] LABS: IRON, SERUM 6 ug/dL (50-175)
[2019-11-26] MEDS ORDERED: INSULIN GLARGINE,HUM 300 UNITS/3 ML CARTRIDGE SQ SCH (21:00)
[2019-11-26] MEDS: INSULIN REGULAR, HUMAN 300 UNIT/3 ML VIAL SQ PRN (21:13)
[2019-11-26] MEDS ORDERED: INSULIN REGULAR, HUMAN 300 UNIT/3 ML VIAL SQ ONE (22:15)
[2019-11-26] MEDS ORDERED: IV NS 1000 ML 1,000 ML IV SCH (22:15)
[2019-11-27] VITALS (94 sets, daily range): BP systolic 62–180; BP diastolic 21–153
--- NOTE | 2019-11-27 00:20 | NUR ---
PATIENT TAKEN FOR CT SCAN. PATIENT TOLERATED TRANSPORT. REMAINS STABLE AT THIS TIME.
[2019-11-27] MEDS: BLOOD SUGAR DIAGNOSTIC 1 EACH STRIP VI SCH ×5 (00:46→20:00)
[2019-11-27] MEDS: INSULIN REGULAR, HUMAN 300 UNIT/3 ML VIAL SQ PRN ×4 (00:51→17:10)
--- NOTE | 2019-11-27 01:38 | NUR ---
BLOOD BANK CALLED FROM LABORATORY AND ARE HAVING DIFFICULT TIME MATCHING BLOOD TYPE- WILL TAKING LONGER TO OBTAIN BLOOD AT THIS TIME. WILL CONTINUE TO WAIT FOR BLOOD.
[2019-11-27] MEDS: NOREPINEPHRINE BITARTRATE 32 MG in IV NORMAL SALINE 218 ML IV PRN ×3 (02:59→19:02)
[2019-11-27 04:17] LABS: BASOPHILS # (AUTO) 0.1 K/uL (0.0-8.0); HEMOGLOBIN 7.5 g/dL (12.5-16.3); MEAN CORPUSCULAR VOLUME 83.3 fL (73.0-96.2)
[2019-11-27 04:18] LABS: BASOPHILS % (AUTO) 0.1 % (0.0-2.0); EOSINOPHILS % (AUTO) 4.8 % (0.0-7.0); HEMATOCRIT 25.1 % (36.7-47.1); LYMPHOCYTES # (AUTO) 1.9 K/uL (20.0-40.0); LYMPHOCYTES % (AUTO) 4.7 % (20.5-51.5); MEAN CORPUSCULAR HEMOGLOBIN 24.8 uug (23.8-33.4); MEAN CORPUSCULAR HGB CONC 30 g/dL (32.5-36.3); MONOCYTES # (AUTO) 1.5 K/uL (2.0-10.0); MONOCYTES % (AUTO) 3.6 % (0.0-11.0); NEUTROPHILS % (AUTO) 86.8 % (38.5-71.5); PLATELET COUNT (AUTO) 448 K/uL (152-348); RED BLOOD CELL COUNT(AUTO) 3.02 MIL/uL (4.06-5.63)
[2019-11-27 04:22] LABS: ALANINE AMINOTRANSFERASE 127 U/L (16-63); ALKALINE PHOSPHATASE 263 U/L (50-136); ASPARTATE AMINOTRANSFERASE 234 U/L (15-37); BILIRUBIN,TOTAL 0.9 mg/dL (0.2-1.0); CARBON DIOXIDE 12 mmol/L (21-32); CHLORIDE 109 mmol/L (98-107); CHOLESTEROL < 50 mg/dL (<200); CREATININE 1.8 mg/dL (0.6-1.3); HDL CHOLESTEROL 10 mg/dL (40-60); MAGNESIUM 2.1 mg/dL (1.8-2.4); PHOSPHOROUS 5.3 mg/dL (2.5-4.9); TOTAL PROTEIN, SERUM 6.5 g/dL (6.4-8.2); TRIGLYCERIDES 100 MG/DL (30-150); UREA NITROGEN, BLOOD 68 mg/dL (7-18)
[2019-11-27 04:31] LABS: THYROID STIMULATING HORMONE 5.139 mIU/mL (0.358-3.740)
[2019-11-27 04:45] LABS: WHITE BLOOD COUNT (AUTO) 41.4 K/uL (3.6-10.2)
[2019-11-27 04:48] LABS: GLUCOSE 422 mg/dL (74-106)
--- NOTE | 2019-11-27 04:50 | NUR ---
endorsed to evelin rnaugust continue to stay with patient fro remainder of shift.
--- NOTE | 2019-11-27 05:00 | NUR ---
Critical labs reported to Dr. Harmeet carias, no new orders received besides monitoring of temperature to redraw blood cultures if spike noticed.
[2019-11-27 05:21] LABS: *OCCULT BLOOD STOOL NEGATIVE (NEGATIVE)
[2019-11-27] MEDS: PIPERACILLIN/TAZO 2.25 G in IV DEXTROSE 5% 50 ML IV SCH (05:29)
[2019-11-27 06:02] LABS: O2Hb 98.5 % (94.0-97.0); VT, ABG 500 mL
[2019-11-27 06:20] LABS: BAND % (MANUAL) 7 % (0-10); EOSINOPHILS % (MANUAL) 3 % (0-8); LYMPHOCYTES % (MANUAL) 11 % (20-40); MONOCYTES % (MANUAL) 4 % (2-10); NEUTROPHILS % (MANUAL) 75 % (42-75)
[2019-11-27] MEDS: LEVOTHYROXINE SODIUM 88 MCG TABLET GT SCH (06:25)
[2019-11-27 06:30] LABS: ABG HCO3 9.9 mmol/L; ABG PCO2 16.7 mmHg (35.0-45.0); ABG SITE LEFT BRACHIAL; ABG TOTAL HEMOGLOBIN 10.2 G/dL (13.5-18.0); COHb 0.3 % (0.5-1.5); VENT MODE Nasal Cannula
--- NOTE | 2019-11-27 06:57 | NUR ---
Contacted [facility] for critical abg results. No answer awaiting call back for critical labs.
--- NOTE | 2019-11-27 07:15 | NUR ---
Contacted [employer] for report of critical labs. No answer at this time will try in 15 minutes.
[2019-11-27] MEDS ORDERED: INSULIN GLARGINE,HUM 300 UNITS/3 ML CARTRIDGE SQ SCH (07:45)
[2019-11-27] MEDS: PHENYLEPHRINE IV 100 MG in IV NORMAL SALINE 240 ML IV PRN ×2 (08:37→22:34)
[2019-11-27] MEDS ORDERED: Medication Not On Formulary EA (Zinc Sulfate 1 TAB) GT SCH (09:00)
[2019-11-27] MEDS ORDERED: Medication Not On Formulary EA (Ascorbic Acid (Vitamin C) 500 MG) GT SCH (09:00)
[2019-11-27] MEDS: HYDROXYCHLOROQUINE SULFATE 200 MG TABLET GT SCH (09:02)
[2019-11-27] MEDS: ZINC SULFATE 220 MG CAPSULE GT SCH (09:02)
[2019-11-27] MEDS: ASCORBIC ACID 500 MG TABLET GT SCH (09:02)
[2019-11-27] MEDS: ASPIRIN 81 MG TAB.CHEW GT SCH (09:02)
[2019-11-27 09:03] LABS: MONOCYTES # (AUTO) 1.5 K/uL (2.0-10.0); PLATELET COUNT (AUTO) 423 K/uL (152-348)
[2019-11-27] MEDS: PANTOPRAZOLE ORAL SUSPENSION 40 MG SUSPDR.PKT GT SCH (09:03)
[2019-11-27] MEDS: MULTIVITAMINS,THERAPEUTIC TABLET GT SCH (09:03)
[2019-11-27] MEDS: MEMANTINE HCL 10 MG TABLET GT SCH (09:04)
[2019-11-27 09:14] LABS: BASOPHILS # (AUTO) 0.1 K/uL (0.0-8.0); BASOPHILS % (AUTO) 0.2 % (0.0-2.0); EOSINOPHILS # (AUTO) 0.2 K/uL (0.0-0.7); EOSINOPHILS % (AUTO) 0.5 % (0.0-7.0); LYMPHOCYTES # (AUTO) 3.1 K/uL (20.0-40.0); LYMPHOCYTES % (AUTO) 8.5 % (20.5-51.5); MEAN CORPUSCULAR HEMOGLOBIN 25.6 uug (23.8-33.4); MEAN CORPUSCULAR HGB CONC 31 g/dL (32.5-36.3); MEAN CORPUSCULAR VOLUME 82.5 fL (73.0-96.2); NEUTROPHILS # (AUTO) 31.9 K/uL (1.8-8.9); NEUTROPHILS % (AUTO) 86.8 % (38.5-71.5); RED BLOOD CELL COUNT(AUTO) 3.59 MIL/uL (4.06-5.63)
[2019-11-27 09:20] LABS: WHITE BLOOD COUNT (AUTO) 36.7 K/uL (3.6-10.2)
[2019-11-27 09:23] LABS: HEMATOCRIT 29.6 % (36.7-47.1); HEMOGLOBIN 9.2 g/dL (12.5-16.3)
--- NOTE | 2019-11-27 10:11 | NUR ---
Contacted Dr. Dahl about patients run of [facility], order received for amioderone, but placed on hold until Dr. Ba approves.
[2019-11-27] MEDS ORDERED: AMIODARONE HCL IV 150 MG in IV DEXTROSE 5% 100 ML IV ONE (10:15)
[2019-11-27 10:50] LABS: BAND % (MANUAL) 21 % (0-10); LYMPHOCYTES % (MANUAL) 10 % (20-40); METAMYELOCYTES % 2 % (0-1); MONOCYTES % (MANUAL) 1 % (2-10)
[2019-11-27] MEDS ORDERED: IV NORMAL SALINE 500 ML IV ONE (10:54)
[2019-11-27 10:55] LABS: NEUTROPHILS % (MANUAL) 66 % (42-75)
[2019-11-27] MEDS ORDERED: DEXTROSE 50% 50 ML DISP.SYRIN IV PRN (11:15)
[2019-11-27] MEDS: INSULIN GLARGINE,HUM 300 UNITS/3 ML CARTRIDGE SQ SCH (11:15)
[2019-11-27] MEDS: IV LACTATED RINGERS SOLUTION 1,000 ML IV PRN ×2 (11:16→20:12)
--- NOTE | 2019-11-27 11:22 | NUR ---
WOUND CARE CONSULT: PT NOT TURNED FOR FULL SKIN ASSESSMENT DUE TO PT UNSTABLE AT THIS TIME. REVIEWED ADMISSION PHOTO DOCUMENTATION OF SACRAL WOUND AND RECOMMENDATIONS MADE FOR WOUND CARE AND SKIN PROTECTION. DISCUSSED WITH NURSING STAFF. SURGICAL CONSULT WAS CALLED TO DR MIMI ELLISON FOR SACRAL WOUND. LEFT ANKLE WOUND IS PURULENT AND LEFT LOWER LEG WOUND HAS DRY ESCHAR, PRESENT ON ADMISSION. RECOMMEND DPM CONSULT. DR RAMOS NOTIFIED OF CONSULT REQUEST. FIRST STEP LOW AIRLOSS MATTRESS ON ORDER. WILL SEE PRN. SULTANA IN AGREEMENT WITH PLAN OF CARE. CURRENT SOLITARIO SCORE IS 11. Addendum: 11/27/19 at 1125 by LORI MARC RN Amended: Links added.
[2019-11-27] MEDS: SODIUM HYPOCHLORITE 0.125% 473 ML BOTTLE TP SCH ×3 (11:30→17:00)
[2019-11-27] MEDS ORDERED: Z GUARD REMEDY PASTE 57 GM TUBE TOP PRN (11:30)
[2019-11-27] MEDS: HEPARIN/D5W DRIP 500 ML IV PRN (11:47)
[2019-11-27] MEDS: AMIODARONE HCL IV 450 MG in IV DEXTROSE 5% 250 ML IV PRN ×2 (12:01→21:25)
[2019-11-27] MEDS: MEROPENEM 500 MG in IV NORMAL SALINE 50 ML IV SCH (12:43)
[2019-11-27] MEDS: VANCOMYCIN IV 1,000 MG in IV DEXTROSE 5% 250 ML IV SCH (13:27)
--- NOTE | 2019-11-27 13:56 | NUR ---
Contacted psychiatric cardiology as patient had another episode of sustained v-tach. No new orders at this time except to get the model of the pacer/defibrilator. Will call Dr. Jacinto Garcia's office.
--- NOTE | 2019-11-27 15:27 | NUR ---
CLINICAL PHARMACY NOTE:VANCOMYCIN DOSING To continue vancomycin dosing on 84 y/o male 182.88cm 71.2kg for possible sepsis Temp. 97.9F WBC 41.4 BUN 68 Scr 1.8 Patient received vancomycin 1250Gm in ER on 11/25 Assessment/Plan As renal function has remained about baseline, continue vancomycin 1gm ivpb q24h estimated trough 18. Second dose was today at 1300. Will order trough level prior to 4th dose (not ordered yet). If renal function were to change will dose per level. Will continue to monitor
[2019-11-27] MEDS ORDERED: DOPamine IV DRIP 400 MG/250ML 250 ML IV PRN (16:00)
--- NOTE | 2019-11-27 16:15 | NUR ---
Dr. Schulte at bedside to cardiovert per conversation with Dr. Ba, patients BP increased to 249/234 and patient spontaneously converted to a paced rhythm. dopamine stopped and neosynephrine held per Dr. Schulte if BP continues to be elevated.
[2019-11-27] MEDS ORDERED: FENTANYL CITRATE 100 MCG/2 ML AMPUL IV PRN (16:30)
[2019-11-27] MEDS: DOPamine IV DRIP 400 MG/250ML 250 ML IV PRN (16:31)
--- NOTE | 2019-11-27 16:44 | NUR ---
Patients BP noted to be 69/38 and neosynephrine restarted.
[2019-11-27] MEDS ORDERED: HYDROXYCHLOROQUINE SULFATE 200 MG TABLET GT SCH (17:00)
--- NOTE | 2019-11-27 17:24 | NUR ---
Davina gama called as patient had started having agonal breathing and during assessment at the bedside took a final breath and no palpable pulse. CPR started.
--- NOTE | 2019-11-27 17:29 | NUR ---
Acls protocol followed and 1mg epi given, Calcium x1, and Sodium bicarb x1. Patient ultimately intubated at [address] Schulte. after etomidate 20mg given. CXR ordered.
[2019-11-27] MEDS ORDERED: EPINEPHRINE 1:10,000 1 MG/10 ML DISP.SYRIN IV ONE (17:30)
[2019-11-27] MEDS ORDERED: CALCIUM CHLORIDE 1 GM/10 ML DISP.SYRIN IV ONE (17:35)
[2019-11-27] MEDS ORDERED: SODIUM BICARBONATE 8.4% 50 MEQ/50 ML DISP.SYRIN IV ONE (17:35)
[2019-11-27] MEDS ORDERED: ETOMIDATE 20 MG/10 ML VIAL IV ONE (17:35)
[2019-11-27] MEDS: PROPOFOL 100 ML IV PRN (18:01)
--- NOTE | 2019-11-27 19:00 | NUR ---
RECEIVED PATIENT ON VENT SETTINGS OF AC 16 TV 550 FIO2 AT 100 % PROPOPOL AT 8 MCG , DOPAMINE AT 8 MCG , NEOSYNEPHRINE AT 3 MCG , LEVOPHED AT 1 MCG , LR AT 125 ML /HR , HEPARIN AT 1170 UNITS , AMIODARONE AT 0.5 MG , BLINKS EYES WITHDRAWS TO PAIN , CENTRAL LINE RIGHT SUBCLAVIAN INTACT , العلي INTACT
--- NOTE | 2019-11-27 19:15 | NUR ---
DR OCHOA IS HERE TO SEE PATIENT , UPDATE GIVEN ON PATIENT'S CONDITION
--- NOTE | 2019-11-27 19:44 | NUR ---
Report given to night shift supervisor nurse, patient on maia vent, a/c 16, TV 550, [id number] ET tube 7.5 and at lip line 20cm. Patient has mcfarland catheter draining yellow urine. Diprivan @ 8mcg, dopamine 8mcg, levophed 1mcg/kg/min, neosynephrine 3mcg/kg/min. IV lactated ringers runing at 125cc/hr.
[2019-11-27 20:09] LABS: ABG BASE EXCESS -10.9 mmol/L; ABG HCO3 13.5 mmol/L; ABG PCO2 25.6 mmHg (35.0-45.0); ABG PO2 234.3 mmHg (75.0-100.0); ABG SITE LEFT FEMORAL; ABG TOTAL HEMOGLOBIN 9.4 G/dL (13.5-18.0); COHb 0.6 % (0.5-1.5); MetHb 0.3 % (0.0-1.5); VENT MODE VENT - A/C; VT, ABG 550 mL
--- NOTE | 2019-11-27 20:30 | NUR ---
DR MCQUEEN , UPHOLSTERER HELPER IS HERE AT BEDSIDE
[2019-11-27] MEDS: MELATONIN 3 MG TABLET GT SCH (21:00)
[2019-11-27] MEDS: TAMSULOSIN HCL 0.4 MG CAP.SR.24H XX SCH (21:00)
[2019-11-27] MEDS: Z GUARD REMEDY PASTE 57 GM TUBE TOP SCH (21:00)
--- NOTE | 2019-11-27 21:00 | NUR ---
DR KINSEY NOTIFIED OF ABG RESULTS . RECEIVED ORDERS
--- NOTE | 2019-11-27 21:30 | NUR ---
DR WEISS WAS AND TALKED TO THE CHILDREN OF THE PATIENT
[2019-11-28] VITALS (77 sets, daily range): BP systolic 49–123; BP diastolic 22–75
[2019-11-28] MEDS: MEROPENEM 500 MG in IV NORMAL SALINE 50 ML IV SCH ×2 (00:14→12:18)
[2019-11-28] MEDS: BLOOD SUGAR DIAGNOSTIC 1 EACH STRIP VI SCH ×5 (00:18→17:24)
[2019-11-28] MEDS: INSULIN REGULAR, HUMAN 300 UNIT/3 ML VIAL SQ PRN ×4 (00:18→17:40)
[2019-11-28] MEDS: NOREPINEPHRINE BITARTRATE 32 MG in IV NORMAL SALINE 218 ML IV PRN ×2 (04:33→12:58)
[2019-11-28] MEDS: DOPamine IV DRIP 400 MG/250ML 250 ML IV PRN ×4 (04:34→17:13)
--- NOTE | 2019-11-28 05:00 | NUR ---
CXR IS DONE
[2019-11-28] MEDS: IV LACTATED RINGERS SOLUTION 1,000 ML IV PRN ×2 (05:05→17:41)
[2019-11-28] MEDS: PHENYLEPHRINE IV 100 MG in IV NORMAL SALINE 240 ML IV PRN ×3 (05:10→21:15)
--- NOTE | 2019-11-28 05:19 | NUR ---
PT ON CONT CALZADA VENT WITH 7.5 ET/TUBE IN PLACE and secured, with current vent settings, changes in fio2 @ 60%, due to abg done earlier, bloody tinge secretions, fair cough effort, SUCTION AND LAVAGE ET/TUBE, CLEAN MOUTH, NO OTHER VENT CHANGES MADE, PT REMAINS ON 605 FIO2, ALL ALARMS GOOD. Ela MEADE RCP Addendum: 11/28/19 at 0521 by HEIKE MEADE RT Amended: Links added.
--- NOTE | 2019-11-28 06:24 | NUR ---
PATIENT IS ON LEVOPHED , NEOSYNEPHRINE , AND DOPAMINE Addendum: 11/28/19 at 0624 by EARNEST ALCALA RN Amended: Alyssa added. Addendum: 11/28/19 at 624 by EARNEST ALCALA RN Amended: Alyssa added. Addendum: 11/28/19 at 0626 by EARNEST ALCALA RN Amended: Links added. Addendum: 11/28/19 at 0628 by EARNEST ALCALA RN Amended: Alyssa added. Addendum: 11/28/19 at 0630 by EARNEST ALCALA RN Amended: Alyssa added.
--- NOTE | 2019-11-28 06:25 | NUR ---
PATIENT IS IV FLUID OF LR AND INTAKE AND OUT PUT BEING MONITORED AND BLOOD LEVELS Addendum: 11/28/19 at 624 by EARNEST ALCALA RN Amended: Alyssa added. Addendum: 11/28/19 at 625 by EARNEST ALCALA RN Amended: Alyssa added. Addendum: 11/28/19 at 627 by EARNEST ALCALA RN Amended: Links added. Addendum: 11/28/19 at 0630 by EARNEST ALCALA RN Amended: Links added.
--- NOTE | 2019-11-28 06:26 | NUR ---
WOUND CARE CONSULT ORDERED , NUTRITIONAL AND [facility] BED IN PLACE Addendum: 11/28/19 at 06 by EARNEST ALCALA RN Amended: Alyssa kay. Addendum: 11/28/19 at 627 by EARNEST ALCALA RN Amended: Alyssa kay. Addendum: 11/28/19 at 0630 by EARNEST ALCALA RN Amended: Links added.
--- NOTE | 2019-11-28 06:28 | NUR ---
PATIENT WOUND CARE CONSULT ORDERD AND TREATMENT BEING RENDERED AND NUTRITIONAL CONSULT ORDERED Addendum: 11/28/19 at 0628 by EARNEST ALCALA RN Amended: Alyssa added. Addendum: 11/28/19 at 0630 by EARNEST ALCALA RN Amended: Alyssa kay.
--- NOTE | 2019-11-28 06:30 | NUR ---
PRESIDENT PRACTICING UROLOGIST FOR SURGICAL CONSULT FOR THE WOUND WAS HERE TO SEE PATIENT
--- NOTE | 2019-11-28 06:30 | NUR ---
DR WEISS SPOKE TO THE FAMILY AND EXPLAINED PROGNOSIS , VERBALIZES UNDERSTANDING Addendum: 11/28/19 at 0630 by EARNEST ALCALA RN Amended: Links added.
--- NOTE | 2019-11-28 07:15 | NUR ---
PATIENT IS PALE VENT SETTINGS OF AC 16 TV 550 , FIO2 50 % , IV DOPAMINE AT 30 MCG , AMIODARONE AT 0.05 , NEOSYNEPHRINE AT 3 MCG , LEVOPHED 1 MCG , HEPARIN 1170 UNITS , LR AT 125 ML/HR , , RIGHT SUBCLAVIAN CENTRAL LINE INTACT , العلي INTACT , LEFT ARM IS SWOLLEN , LEFT FOOT AND LEFT LATERAL FOOT , UTD , WITH DRAINAGE
[2019-11-28] MEDS: LEVOTHYROXINE SODIUM 88 MCG TABLET GT SCH (07:58)
[2019-11-28] MEDS: MEMANTINE HCL 10 MG TABLET GT SCH (08:22)
[2019-11-28] MEDS: ASCORBIC ACID 500 MG TABLET GT SCH (08:23)
[2019-11-28] MEDS: PANTOPRAZOLE ORAL SUSPENSION 40 MG SUSPDR.PKT GT SCH (08:23)
[2019-11-28] MEDS: ZINC SULFATE 220 MG CAPSULE GT SCH (08:23)
[2019-11-28] MEDS: ASPIRIN 81 MG TAB.CHEW GT SCH (08:23)
[2019-11-28] MEDS: MULTIVITAMINS,THERAPEUTIC TABLET GT SCH (08:24)
[2019-11-28 08:25] LABS: BASOPHILS # (AUTO) 0.1 K/uL (0.0-8.0); BASOPHILS % (AUTO) 0.4 % (0.0-2.0); EOSINOPHILS # (AUTO) 0.3 K/uL (0.0-0.7); EOSINOPHILS % (AUTO) 1.1 % (0.0-7.0); HEMATOCRIT 30.6 % (36.7-47.1); HEMOGLOBIN 9.7 g/dL (12.5-16.3); LYMPHOCYTES # (AUTO) 1.6 K/uL (20.0-40.0); LYMPHOCYTES % (AUTO) 6.3 % (20.5-51.5); MEAN CORPUSCULAR HEMOGLOBIN 25.8 uug (23.8-33.4); MEAN CORPUSCULAR HGB CONC 32 g/dL (32.5-36.3); MEAN CORPUSCULAR VOLUME 81.4 fL (73.0-96.2); MONOCYTES # (AUTO) 0.7 K/uL (2.0-10.0); MONOCYTES % (AUTO) 2.7 % (0.0-11.0); NEUTROPHILS # (AUTO) 23.2 K/uL (1.8-8.9); NEUTROPHILS % (AUTO) 89.5 % (38.5-71.5); PLATELET COUNT (AUTO) 383 K/uL (152-348); RED BLOOD CELL COUNT(AUTO) 3.76 MIL/uL (4.06-5.63); WHITE BLOOD COUNT (AUTO) 25.9 K/uL (3.6-10.2)
[2019-11-28] MEDS: SODIUM HYPOCHLORITE 0.125% 473 ML BOTTLE TP SCH ×4 (08:28→17:00)
[2019-11-28] MEDS: Z GUARD REMEDY PASTE 57 GM TUBE TOP SCH ×2 (08:28→20:13)
[2019-11-28] MEDS: INSULIN GLARGINE,HUM 300 UNITS/3 ML CARTRIDGE SQ SCH (08:38)
[2019-11-28 08:43] LABS: ABG BASE EXCESS -11.7 mmol/L; ABG HCO3 11.7 mmol/L; ABG PCO2 20.7 mmHg (35.0-45.0); ABG PH 7.371 (7.350-7.450); ABG PO2 158.6 mmHg (75.0-100.0); ABG SITE RIGHT RADIAL; ABG TOTAL HEMOGLOBIN 10.6 G/dL (13.5-18.0); COHb 0.6 % (0.5-1.5); MetHb 0.1 % (0.0-1.5); O2Hb 98.8 % (94.0-97.0); VENT MODE VENT - A/C; VT, ABG 550 mL
[2019-11-28 08:52] LABS: ALANINE AMINOTRANSFERASE 2037 U/L (16-63); ALKALINE PHOSPHATASE 261 U/L (50-136); ASPARTATE AMINOTRANSFERASE 1927 U/L (15-37); BILIRUBIN,TOTAL 2.2 mg/dL (0.2-1.0); CARBON DIOXIDE 17 mmol/L (21-32); CHLORIDE 112 mmol/L (98-107); CREATINE KINASE, TOTAL 111 U/L (39-308); CREATININE 1.6 mg/dL (0.6-1.3); GLUCOSE 181 mg/dL (74-106); MAGNESIUM 1.8 mg/dL (1.8-2.4); PHOSPHOROUS 4.6 mg/dL (2.5-4.9); POTASSIUM 4.5 mmol/L (3.5-5.1); TOTAL PROTEIN, SERUM 5.8 g/dL (6.4-8.2); UREA NITROGEN, BLOOD 66 mg/dL (7-18)
[2019-11-28 10:26] LABS: *BILIRUBIN,URIN NEGATIVE (NEGATIVE); *BLOOD, URINE NEGATIVE (NEGATIVE); *CLARITY,URINE CLEAR (CLEAR); *COLOR,URINE YELLOW (YELLOW); *KETONES,URINE NEGATIVE (NEGATIVE); *UROBILINOGEN,URINE 0.2 E.U./dl (NORMAL); LEUKOCYTE ESTERASE ,URINE TRACE (NEGATIVE); NITRITE, URINE NEGATIVE (NEGATIVE); UGLUCOSE NEGATIVE (NEGATIVE)
[2019-11-28 10:28] LABS: *URINE TOTAL PROTEIN RANDOM 58.2 mg/dL (<150/24HR)
[2019-11-28 10:38] LABS: BACTERIA,URINE MODERATE /HPF (NONE SEEN); RBC,URINE 0-3 /HPF (0-3); SQUAMOUS EPITHELIAL CELL,UR FEW /HPF (NONE SEEN)
[2019-11-28 10:39] LABS: MUCUS,URINE FEW /LPF (0-FEW); URINE AMORPHOUS URATE MODERATE /HPF
[2019-11-28] MEDS: HEPARIN/D5W DRIP 500 ML IV PRN (11:20)
[2019-11-28] MEDS: AMIODARONE HCL IV 450 MG in IV DEXTROSE 5% 250 ML IV PRN ×2 (12:31→22:29)
[2019-11-28] MEDS: VANCOMYCIN IV 1,000 MG in IV DEXTROSE 5% 250 ML IV SCH (13:37)
[2019-11-28] MEDS ORDERED: SOD FERRIC GLUC COMPLX/SUCROSE 125 MG in IV NORMAL SALINE 100 ML IV SCH (14:00)
[2019-11-28] MEDS: PROPOFOL 100 ML IV PRN (15:01)
--- NOTE | 2019-11-28 16:22 | NUR ---
CLINICAL PHARMACY NOTE:VANCOMYCIN DOSING To continue vancomycin dosing on 84 y/o male 182.88cm 71.2kg for possible sepsis Temp. 98.8F WBC 25.9 BUN 66 Scr 1.6 Patient received vancomycin 1250Gm in ER on 11/25 Assessment/Plan As renal function has remained about baseline, continue vancomycin 1gm ivpb q24h estimated trough 18. Third dose was today at 1300. Will order trough level prior to 4th dose (due tomorrow at 1230). Will check level when available and adjust as needed. Will follow
[2019-11-28] MEDS ORDERED: DOPamine IV DRIP 800 MG/250ML 250 ML IV PRN (20:00)
[2019-11-28] MEDS ORDERED: MUPIROCIN 2% OINT 22 GM TUBE NS SCH (21:00)
--- NOTE | 2019-11-28 21:45 | NUR ---
PATIENT FAMILY WAS NOTIFIED AND CALLED OF PATIENT'S STATUS . , BINDING CUTTER NOTIFIED WELL
--- NOTE | 2019-11-28 22:30 | NUR ---
PATIENT FAMILY AT BEDSIDE AND INFORMED OF LIMIT /RESTRICTION VISITING TIME , VERBALIZES UNDERSTANDING
--- NOTE | 2019-11-28 23:30 | NUR ---
CALLED AND TALKED TO DR GABRIELA Lancaster OF PATIENT'S FAMILY WISHES TO PUT PATIENT ON MORPHINE DRIP AND EXTUBATE , SPOKE TO THE FAMILY , PYROTECHNICIAN NOTIFIED
[2019-11-28] MEDS ORDERED: MORPHINE SULFATE PF IV DRIP 100 MG in IV DEXTROSE 5% 96 ML IV PRN (23:45)
--- NOTE | 2019-11-28 23:45 | NUR ---
PHARMACIST CALLED AND NOTIFIED OF ORDER FOR MORPHINE DRIP
[2019-11-29] VITALS: BP_SYST 44; BP_SYST 68; BP_DIAS 28; BP_DIAS 39
[2019-11-29] MEDS ORDERED: MORPHINE SULFATE PF IV DRIP 250 MG in IV DEXTROSE 5% 240 ML IV PRN (00:30)
--- NOTE | 2019-11-29 00:31 | NUR ---
PT. PUPIL FIXED & DILATED. NO AUDIBLE HEART TONES & BREATH SOUNDS FOR 1 MIN. NO PALPABLE PULSES FOR 1 MIN. NO CORNEAL RELFEXES NOTED. PT. REMAINS ON MECHANICAL VENTILATOR NOT ASSISTING. PT. PRONOUNCED @ 0031. FAMILY NOTIFIED, BENITO DAUGHTER RECEIVED THE MESSAGE. PHYSICIANS NOTIFIED, DR GUERRA. MEN'S FURNISHINGS SALESPERSON NOTIFIED.
--- NOTE | 2019-11-29 00:35 | NUR ---
PHARMACIST AND LUMBER STACKER NOTIFIED PATIENT
--- NOTE | 2019-11-29 00:40 | NUR ---
DAUGHTER BENITO CALLED AND NOTIFIED , PATIENT AND MORPHINE DRIP WAS NEVER STARTED YET , DR OCHOA NOTIFIED
--- NOTE | 2019-11-29 01:00 | NUR ---
PATIENT WAS EXTUBATED AND العلي CATHETER DISCONTINUED AND IV SITE ON RIGHT AC
--- NOTE | 2019-11-29 02:26 | NUR ---
PATIENT ON LR 125 ML /HR , LAB LEVELS IS BEING MONITORED Addendum: 11/29/19 at 0226 by EARNEST ALCALA RN Amended: Links added.
--- NOTE | 2019-11-29 02:27 | NUR ---
FAMILY REFUSED ANYMORE EXTENSIVE TREATMENT FOR THE PATIENT LIKE DEBRIDEMEN Addendum: 11/29/19 at 0227 by EARNEST ALCALA RN Amended: Links added.
--- NOTE | 2019-11-29 02:28 | NUR ---
PATIENT OS ON LEVOPHED , DOPAMINE , NEOSYNEPHRINE ALL AT MAXIMUM DOSE Addendum: 11/29/19 at 0229 by EARNEST ALCALA RN Amended: Links added.
[2019-12-01 12:07] LABS: A/G RATIO 0.4 (0.7-1.7); ALBUMIN 1.4 g/dL (2.9-4.4); ALPHA-1-GLOBULIN 0.3 g/dL (0.0-0.4); ALPHA-2-GLOBULIN 0.8 g/dL (0.4-1.0); BETA GLOBULIN 0.5 g/dL (0.7-1.3); GAMMA GLOBULIN 1.9 g/dL (0.4-1.8); GLOBULIN, TOTAL 3.4 g/dL (2.2-3.9); M-SPIKE 0.3 g/dL (Not Observed)
== END 2019-11-29 00:31 | disposition expired | DRG 871 ==
LOC: ER 11:00 → CCU 17:22
PROVIDERS: ADMIT Internal Medicine; ATTEND Internal Medicine
PROC: 02HV33Z Insertion of Infusion Device into Superior Vena Cava, Percutaneous Approach (ICD-10-PCS; principal; 2019-11-26)
PROC: 30233N1 Transfusion of Nonautologous Red Blood Cells into Peripheral Vein, Percutaneous Approach (ICD-10-PCS; 2019-11-27)
PROC: 5A1945Z Respiratory Ventilation, 24-96 Consecutive Hours (ICD-10-PCS; 2019-11-27)
PROC: 5A12012 Performance of Cardiac Output, Single, Manual (ICD-10-PCS; 2019-11-27)
PROC: 0BH17EZ Insertion of Endotracheal Airway into Trachea, Via Natural or Artificial Opening (ICD-10-PCS; 2019-11-27)
PROC: 4B02XTZ Measurement of Cardiac Defibrillator, External Approach (ICD-10-PCS; 2019-11-28)
DX: A41.9 Sepsis, unspecified organism (principal); J69.0 Pneumonitis due to inhalation of food and vomit; R65.21 Severe sepsis with septic shock; N17.0 Acute kidney failure with tubular necrosis; E43 Unspecified severe protein-calorie malnutrition; I21.A1 Myocardial infarction type 2; K72.00 Acute and subacute hepatic failure without coma; Z66 Do not resuscitate; Z51.5 Encounter for palliative care; I50.23 Acute on chronic systolic (congestive) heart failure; J96.01 Acute respiratory failure with hypoxia; I82.612 Acute embolism and thrombosis of superficial veins of left upper extremity; I82.411 Acute embolism and thrombosis of right femoral vein; N39.0 Urinary tract infection, site not specified; I47.1 Supraventricular tachycardia; R64 Cachexia; I48.20 Chronic atrial fibrillation, unspecified; J98.11 Atelectasis; M46.28 Osteomyelitis of vertebra, sacral and sacrococcygeal region; M86.8X6 Other osteomyelitis, lower leg; E87.2 Acidosis; D68.59 Other primary thrombophilia; L03.116 Cellulitis of left lower limb; Z16.12 Extended spectrum beta lactamase (ESBL) resistance; Z68.1 Body mass index [BMI] 19.9 or less, adult; I48.0 Paroxysmal atrial fibrillation; Z95.810 Presence of automatic (implantable) cardiac defibrillator; M51.16 Intervertebral disc disorders with radiculopathy, lumbar region; M16.0 Bilateral primary osteoarthritis of hip; Z93.1 Gastrostomy status; K21.9 Gastro-esophageal reflux disease without esophagitis; F03.90 Unspecified dementia, unspecified severity, without behavioral disturbance, psychotic disturbance, mood disturbance, and anxiety; E11.65 Type 2 diabetes mellitus with hyperglycemia; H40.9 Unspecified glaucoma; I25.10 Atherosclerotic heart disease of native coronary artery without angina pectoris; Z95.1 Presence of aortocoronary bypass graft; N40.0 Benign prostatic hyperplasia without lower urinary tract symptoms; R13.10 Dysphagia, unspecified; E11.69 Type 2 diabetes mellitus with other specified complication; I70.0 Atherosclerosis of aorta; I46.9 Cardiac arrest, cause unspecified; I15.2 Hypertension secondary to endocrine disorders; I11.0 Hypertensive heart disease with heart failure; I44.7 Left bundle-branch block, unspecified; I25.5 Ischemic cardiomyopathy; Z74.09 Other reduced mobility; Z87.820 Personal history of traumatic brain injury; M81.0 Age-related osteoporosis without current pathological fracture; L89.150 Pressure ulcer of sacral region, unstageable; L89.529 Pressure ulcer of left ankle, unspecified stage; B96.20 Unspecified Escherichia coli [E. coli] as the cause of diseases classified elsewhere; B96.4 Proteus (mirabilis) (morganii) as the cause of diseases classified elsewhere; B95.0 Streptococcus, group A, as the cause of diseases classified elsewhere; Z86.73 Personal history of transient ischemic attack (TIA), and cerebral infarction without residual deficits; T88.4XXA Failed or difficult intubation, initial encounter; E03.9 Hypothyroidism, unspecified; F32.9 Major depressive disorder, single episode, unspecified; Z79.4 Long term (current) use of insulin
CPT/HCPCS: 36415; 36556; 36600; 70030-TC; 71045; 71250; 72220; 73610; 76770; 82378; 83550; 83605; 83690; 83735; 83970; 84100; 84155; 84156; 84165; 84300; 84443; 85025; 85651; 85730; 86850; 86900; 86901; 86920; 87040; 87070; 87077; 87086; 87400; 92950; 93005; 93307; 94002; 94003; A4663; C1758; G0378; J0171; J0282; J0456; J1265; J1644; J1815; J2060; J2185; J2270; J2274; J2370; J2543; J2916; J3010; J3370; J3490; J7030; J7040; J7050; J7060; J7120; P9016-BL; P9021; U0002